=== PATIENT | female | born 1975 | race Caucasian/White ===

== ENCOUNTER 2018-10-16 09:50 | Emergency (ER) | payer OTHER ==
[~2018-10-16] VITALS: Ht 175.3 cm; Wt 94.3 kg
[2018-10-16] MEDS ORDERED: METF500C PO (10:35)
[2018-10-16] MEDS ORDERED: CHOL10002 (10:35)
[2018-10-16] MEDS ORDERED: NAPR550 PO (12:08)
[2018-10-16] MEDS ORDERED: Voltaren100 GM TOP (12:08)
== END 2018-10-16 12:22 | disposition home or self-care (01) ==
LOC: ER 09:50
DX: M25.561 Pain in right knee (principal); Z91.048 Other nonmedicinal substance allergy status; Z79.899 Other long term (current) drug therapy; Z79.84 Long term (current) use of oral hypoglycemic drugs
CPT/HCPCS: 73562-RT; 93971; 99284-25

== ENCOUNTER 2018-11-09 15:07 | Emergency (ER) | payer OTHER ==
[~2018-11-09] VITALS: Ht 167.6 cm; Wt 86.2 kg
[~2018-11-09 15:07] MED LIST: CHOL10002; METF500C PO; NAPR550 PO; Voltaren100 GM TOP
[2018-11-09] MEDS ORDERED: Mupirocin22 GM TOP (15:46)
== END 2018-11-09 15:52 | disposition home or self-care (01) ==
LOC: ER 15:07
DX: S61.200A Unspecified open wound of right index finger without damage to nail, initial encounter (principal); F17.200 Nicotine dependence, unspecified, uncomplicated; W57.XXXA Bitten or stung by nonvenomous insect and other nonvenomous arthropods, initial encounter
CPT/HCPCS: 99282

== ENCOUNTER 2018-12-31 13:19 | Emergency (ER) | payer OTHER ==
[~2018-12-31] VITALS: Ht 175.3 cm; Wt 98.0 kg
[~2018-12-31 13:19] MED LIST changes: +Mupirocin22 GM TOP
[2018-12-31] MEDS ORDERED: VOLTAREN100 GM TOP (15:14)
[2018-12-31] MEDS ORDERED: PRED10 PO (15:14)
== END 2018-12-31 15:23 | disposition home or self-care (01) ==
LOC: ER 13:19
DX: M25.431 Effusion, right wrist (principal); Z88.8 Allergy status to other drugs, medicaments and biological substances; Z79.899 Other long term (current) drug therapy; Z79.84 Long term (current) use of oral hypoglycemic drugs; F17.200 Nicotine dependence, unspecified, uncomplicated
CPT/HCPCS: 29125; 76882; 99283-25; L3917

== ENCOUNTER 2019-02-20 23:12 | Emergency (ER) | payer OTHER ==
[~2019-02-20] VITALS: Ht 175.3 cm; Wt 95.7 kg
[~2019-02-20 23:12] MED LIST changes: +PRED10 PO; +VOLTAREN100 GM TOP
[2019-02-21] MEDS ORDERED: TRAM50 PO (00:25)
[2019-02-21] MEDS ORDERED: IBUP600 PO (01:06)
[2019-02-21] MEDS ORDERED: CYCL10 PO (01:06)
[2019-02-21] MEDS ORDERED: LIDO700A20 TOP (01:06)
== END 2019-02-21 01:38 | disposition home or self-care (01) ==
LOC: ER 23:12
DX: S39.012A Strain of muscle, fascia and tendon of lower back, initial encounter (principal); F17.200 Nicotine dependence, unspecified, uncomplicated; Z91.048 Other nonmedicinal substance allergy status; Z79.899 Other long term (current) drug therapy; X58.XXXA Exposure to other specified factors, initial encounter; Y93.F2 Activity, caregiving, lifting
CPT/HCPCS: 72100; 96372; 99283; J1885